=== PATIENT | male | born 1975 | race Asian ===

== ENCOUNTER 2023-07-16 07:21 | Emergency (ER) | payer MEDICAID, OTHER ==
[~2023-07-16] VITALS: Ht 177.8 cm; Wt 79.4 kg
[2023-07-16 07:58] VITALS: BP 110/73; PULSE 89; RESP 16; TEMP 98.3; O2SAT 98
[2023-07-16] MEDS: HYDROcodone-ACET 5/325MG TAB PO ONE (08:49)
[2023-07-16] MEDS: KETOROLAC TROMETH 30 MG/ML 1ML VIAL IM ONE (08:49)
[2023-07-16] MEDS: TRIAMCINOLONE 40MG/ML 1ML VIAL IM ONE (08:55)
[2023-07-16 09:27] LABS: Basophils # (auto) 0 10 ^3/uL (0-0.2); Basophils % (auto) 0.1 % (0.0-2.0); Eosinophils # (auto) 0.1 10 ^3/uL (0-0.8); Eosinophils % (auto) 1.1 % (0.0-7.0); Hematocrit 44.1 % (41.0-53.0); Hemoglobin 15.1 g/dL (13.5-17.5); Lymphocytes # (auto) 0.8 10 ^3/uL (0.4-5.4); Lymphocytes % (auto) 10.5 % (10.0-50.0); Mean Corpuscular Hemoglobin 30.2 pg (28.0-32.0); Mean Corpuscular Hgb Conc. 34.2 g/dL (32.0-36.0); Mean Corpuscular Volume 88.3 fL (80.0-100.0); Monocytes # (auto) 0.7 10 ^3/uL (0-1.3); Monocytes % (auto) 9.6 % (0.0-12.0); Neutrophils # (auto) 5.7 10 ^3/uL (1.6-8.6); Neutrophils % (auto) 78.7 % (37.0-80.0); Red Blood Cells 4.99 10^6/uL (4.5-5.90); Red Cell Distribution Width 12.8 % (11.8-14.3); White Blood Cell 7.2 10^3/uL (4.4-10.8)
[2023-07-16 09:32] LABS: Chloride 109 mmol/L (98-107); Potassium 3.8 mmol/L (3.5-5.1); Sodium 143 mmol/L (136-145)
[2023-07-16 09:33] LABS: Anion Gap 5 (5-15); Carbon Dioxide 29 mmol/L (20-30)
[2023-07-16 09:34] LABS: Calcium 9.6 mg/dL (8.5-10.1)
[2023-07-16 09:38] LABS: BUN/Creatinine Ratio 11.3 (10.0-20.0); Blood Urea Nitrogen 11 mg/dL (9-23); Glucose 96 mg/dL (74-106)
[2023-07-16 10:18] LABS: Uric Acid 8.8 mg/dL (3.7-9.2)
[2023-07-16] MEDS ORDERED: PRED20TA2 PO (10:43)
[2023-07-16] MEDS ORDERED: CEPH500C PO (10:43)
[2023-07-16] MEDS ORDERED: NAP500T PO (10:43)
== END 2023-07-16 10:48 | disposition home or self-care (01) ==
LOC: ER 07:21
DX: M10.9 Gout, unspecified (principal)
CPT/HCPCS: 36415; 80048; 84550; 85025; 96372; 99284; J1885; J3301